=== PATIENT | male | born 1970 | race Caucasian/White ===

== ENCOUNTER 2023-11-13 23:52 | Emergency (ER) | payer BC, SELFPAY ==
[2023-11-14 00:10] VITALS: BP 165/108
[2023-11-14 00:45] LABS: Urine Albumin Trace (Neg - Trace); Urine Bilirubin Negative (Negative); Urine Character Clear (Clear); Urine Color Yellow; Urine Glucose Negative (Negative); Urine Ketone Negative (Negative); Urine Leukocyte Negative (Negative); Urine Nitrite Negative (Negative); Urine Occult Blood Negative (Negative); Urine Urobilinogen Negative (Neg - 1+)
[2023-11-14 02:47] VITALS: BMI 27.5
[2023-11-14 02:52] LABS: % Basophils 0.5 % (0-2); % Eosinophils 2.8 % (0-6); % Immature Granulocytes 0.2 % (0-0.5); % Lymphocytes 14.3 % (20.5-51.1); % Monocytes 5.5 % (1.7-9.3); % Neutrophils 76.7 % (42.2-75.2); Absolute Basophils 0.1 10^3/uL (0-0.2); Absolute Eosinophils 0.4 10^3/uL (0-0.7); Absolute Lymphocytes 1.8 10^3/uL (1.2-3.4); Absolute Monocytes 0.7 10^3/uL (0.1-0.6); Absolute Neutrophils 9.5 10^3/uL (1.4-6.5); Hematocrit 39.5 % (39.0-52.0); Hemoglobin 14.3 g/dL (13.0-18.0); Mean Corp Hgb Conc. 36.2 g/dL (33.0-37.0); Mean Corpuscular Hgb 32.6 pg (27.0-31.0); Mean Platelet Volume 9.5 fL (7.4-10.4); Nucleated Red Blood Cells % 0 % (-); Platelet Count 286 10^3/uL (130-400); Red Blood Cell Count 4.39 10^6/uL (4.70-6.10); Red Cell Dist. Width 14.3 % (11.5-14.5); White Blood Cell Count 12.4 10^3/uL (4.8-10.8)
[2023-11-14 03:05] LABS: ALT (SGPT) 52 U/L (0-50); AST (SGOT) 43 U/L (17-59); Albumin 5.5 g/dl (3.5-5.0); Alkaline Phosphatase 95 U/L (38-126); Blood Urea Nitrogen 10 mg/dl (9-20); Calcium 10.3 mg/dl (8.4-10.2); Carbon Dioxide 23 mmol/L (22-30); Chloride 104 mmol/L (98-107); Estimated Creatinine Clearance 119 ml/min; Glucose 110 mg/dl (70-99); Potassium 4.4 mmol/L (3.5-5.1); Sodium 143 mmol/L (135-145); Total Bilirubin 0.6 mg/dl (0.2-1.3); Total Protein 8.6 g/dl (6.3-8.2); eGFR > 60.00
[2023-11-14 03:18] VITALS: BP 124/74
--- NOTE | 2023-11-14 04:03 | ED.GENMED ---
History of Present Illness
<OLGA LIDIA Mendoza - Last Filed: 11/14/23 04:23>
General
Chief Complaint: Abdominal Pain
Source: patient
Exam Limitations: none
Time Seen by Provider: 11/14/23 03:38
Travel History
Have you had any contact with someone who has COVID-19?: No
Do you have any symptoms of coronavirus? Fever > 100 degrees, chills, cough, shortness of breath, sore throat, loss of taste or smell, muscle aches, or headache?: No
History of Present Illness
History of Present Illness:
52 year old male with hx of HTN, HLD, diverticulitis, bowel perforation with colon resection in 2013 who presents for waxing and waning RLQ abdominal pain that began at 2000 yesterday. 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
of 9/10 sharp RLQ abdominal pain that radiates to the back. He has associated nausea and vomiting x1. States the pain was so severe he was on the floor. States the pain felt similar to his pain when he had a bowel perforation. Pain currently is
6/10. Also reports abdominal bloating, burning sensation to the chest, and increased belching. No chest pain, SOB, fevers/chills, hematochezia, hematemesis, constipation, dysuria, hematuria. Pt with hx of IBS-D and states he has diarrhea at baseline
sometimes. No tobacco use. Reports drinking a couple of times a week, 1-2 beers each time. Luis M pt had 4 beers. Reports marijuana use.
Past History
<OLGA LIDIA Mendoza - Last Filed: 11/14/23 04:23>
Past History
ED Past Medical History: Other (divertic)
Social History
Tobacco: Non-smoker
Alcohol: Occasional
Drug: Marijuana
Personal:
Living: with family
Employment: Employed
Review of Systems
<OLGA LIDIA Mendoza - Last Filed: 11/14/23 04:23>
Review of Systems
Constitutional: Reports no symptoms
EENT: Reports no symptoms
Respiratory: Reports no symptoms
Cardiac: Reports no symptoms
ABD/GI: Reports abdominal pain, nausea, vomiting and diarrhea
: Reports no symptoms
Musculoskeletal: Reports no symptoms
Skin: Reports no symptoms
Neurological: Reports no symptoms
Phy Exam
<Jackelin Hopper [facility] - Last Filed: 11/14/23 04:23>
General Physical Exam
General Presentation: well appearing and no apparent distress
General Skin: warm and dry
General Habitus: normal
General Mental: alert
General Hydration: appears well hydrated
Pulmonary Exam
Pulmonary Exam: lungs clear, no respiratory distress, no rales, no crackles, no rhonchi, no wheezing and no cough
Gastrointestinal Exam
Gastrointestinal Exam: normal bowel sounds, no pulsatile mass, distended and no masses
Palpation: right lower quadrant: Moderate tenderness
Neurological Exam
Neurological Exam: alert and oriented x3
Skin Exam
Skin Exam: normal color and warm/dry
Psychiatric Exam
Psychiatric Exam: normal mood/affect
Course
<Jackelin Hopper [facility] - Last Filed: 11/14/23 04:23>
Orders/Labs/Results
Orders:
Orders
11/14/23 00:37
Urinalysis Reflex To Culture Urgent
Date Specimen was Collected: 11/14/23
Time Specimen was Collected: 00:18
11/14/23 02:45
CMP [Comprehensive Metabolic Panel] Urgent
Complete Blood Count/With Diff Urgent
11/14/23 03:06
Abdomen/Pelvis w Contrast CT [CT Abd/pelvis W Iv Cont] Urgent
Comment:
Reason For Exam: R abd pain, vomiting, hx bowel resection for perf
Abnormal Lab Results
11/14/23
02:45
WBC 12.4 H 10^3/uL
(4.8-10.8)
RBC 4.39 L 10^6/uL
(4.70-6.10)
MCH 32.6 H pg
(27.0-31.0)
Absolute Neuts (auto) 9.5 H 10^3/uL
(1.4-6.5)
Absolute Monos (auto) 0.7 H 10^3/uL
(0.1-0.6)
Neutrophils % 76.7 H %
(42.2-75.2)
Lymphocytes % 14.3 L %
(20.5-51.1)
Glucose 110 H mg/dl
(70-99)
Calcium 10.3 H mg/dl
(8.4-10.2)
ALT 52 H U/L
(0-50)
Total Protein 8.6 H g/dl
(6.3-8.2)
Albumin 5.5 H g/dl
(3.5-5.0)
11/14/23 02:45
11/14/23 02:45
Vital Signs
Initial and Last Documented VS:
Initial Vital Signs
Temp Pulse Resp BP Pulse Ox
97.9 F 79 18 165/108 96
11/14/23 00:10 11/14/23 00:10 11/14/23 00:10 11/14/23 00:10 11/14/23 00:10
Last Documented Vital Signs
Temp Pulse Resp BP Pulse Ox
97.9 F 70 16 124/74 97
11/14/23 00:10 11/14/23 03:18 11/14/23 03:18 11/14/23 03:18 11/14/23 03:18
<Arik Cifuentes, DO - Last Filed: 11/14/23 05:38>
Orders/Labs/Results
Orders:
Orders
11/14/23 00:37
Urinalysis Reflex To Culture Urgent
Date Specimen was Collected: 11/14/23
Time Specimen was Collected: 00:18
11/14/23 02:45
CMP [Comprehensive Metabolic Panel] Urgent
Complete Blood Count/With Diff Urgent
11/14/23 03:06
Abdomen/Pelvis w Contrast CT [CT Abd/pelvis W Iv Cont] Urgent
Comment:
Reason For Exam: R abd pain, vomiting, hx bowel resection for perf
Abnormal Lab Results
11/14/23
02:45
WBC 12.4 H 10^3/uL
(4.8-10.8)
RBC 4.39 L 10^6/uL
(4.70-6.10)
MCH 32.6 H pg
(27.0-31.0)
Absolute Neuts (auto) 9.5 H 10^3/uL
(1.4-6.5)
Absolute Monos (auto) 0.7 H 10^3/uL
(0.1-0.6)
Neutrophils % 76.7 H %
(42.2-75.2)
Lymphocytes % 14.3 L %
(20.5-51.1)
Glucose 110 H mg/dl
(70-99)
Calcium 10.3 H mg/dl
(8.4-10.2)
ALT 52 H U/L
(0-50)
Total Protein 8.6 H g/dl
(6.3-8.2)
Albumin 5.5 H g/dl
(3.5-5.0)
11/14/23 02:45
11/14/23 02:45
Vital Signs
Initial and Last Documented VS:
Initial Vital Signs
Temp Pulse Resp BP Pulse Ox
97.9 F 79 18 165/108 96
11/14/23 00:10 11/14/23 00:10 11/14/23 00:10 11/14/23 00:10 11/14/23 00:10
Last Documented Vital Signs
Temp Pulse Resp BP Pulse Ox
97.9 F 70 16 124/74 97
11/14/23 00:10 11/14/23 03:18 11/14/23 03:18 11/14/23 03:18 11/14/23 03:18
<OLGA LIDIA Mendoza - Last Filed: 11/14/23 04:23>
MDM/Problems Addressed
Differential Diagnosis Includes:
Appendicitis, pancreatitis, diverticulosis, diverticulitis, small bowel obstruction, bowel perforation
MDM/Problems Addressed:
52 year old male with hx of HTN, HLD, diverticulitis, small bowel perforation who presents with RLQ abdominal pain with nausea and vomiting that began 10 pm Sunday.
Chronic conditions affecting care: HTN and Other (HLD)
<OLGA LIDIA Mendoza - Last Filed: 11/14/23 04:23>
*Critical Care Note
Total Time (30-74mins, 75-104mins- exclusive of procedures): Not Applicable
<Arik Cifuentes DO - Last Filed: 11/14/23 05:38>
Update Note
Update Note:
CT ABDOMEN/PELVIS WITH CONTRAST
IMPRESSION:
1. Mild distal esophageal wall thickening, can be correlated with signs or symptoms of esophagitis
2. No bowel obstruction. Normal gallbladder and appendix
Incidentals:
-Moderate stool burden
- No obstructive uropathy.
- No hepatic or pancreatic mass.
- No abdominal aortic aneurysm.
- No acute osseous abnormality.
- No acute abnormality within the visualized lungs.
- No acute abnormality within the visualized soft tissues.
ED Attending Note
<OLGA LIDIA Mendoza - Last Filed: 11/14/23 04:23>
-
Portions of this chart may have been created with voice recognition software.� Occasional wrong word or��sound alike� substitutions may have occurred due to the inherent limitations of voice recognition software.
<Arik Cifuentes DO - Last Filed: 11/14/23 05:38>
ED Attending Note
Patient seen and examined by attending physician: Yes
I performed the substantive portion of visit, reviewed & personally made and approve the management plan that is documented in note by myself or SHALINI.: No
I performed a history and physical exam of patient and discussed management with resident, I reviewed resident's note and agree with documented findings and plan of care.: No
ED Attending Note:
Pleasant 52-year-old male presents with right lower quadrant abdominal pain that began around 8 PM last evening. 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 He reported that radiates
straight through to the back. He denies chest pain or shortness of breath. Patient does report having several beers this evening.
Discharge Plan
Departure
Patient Disposition: Home (Routine Discharge)
Date of Disposition: 11/14/23
Time of Disposition: 05:36
Patient with high blood pressure during this ER visit?: Yes
Condition: Good
Discharge Problem:
Abdominal pain
Instructions: Abdominal Pain, BLOOD PRESSURE, Constipation, Adult (DC), Acid Reflux and GERD in Adults (DC)
Prescriptions:
No Action
Lactobacillus acidophilus 1 EACH tablet
1 cap PO TID
fexofenadine-pseudoephedrine [Maria Fernanda-D 24 Hour] 1 EACH tablet extended release 24 hr
1 tab PO DAILY
omega-3 fatty acids-fish oil [Fish Oil] 1,000 MG capsule
2 cap PO BID
polyethylene glycol 3350 17 GRAMS powder in packet
17 grams PO DAILY PRN (Reason: CONSTIPATION)
acetaminophen [Tylenol Extra Strength] 500 MG tablet
1,000 mg PO Q6H PRN (Reason: PAIN)
dicyclomine 10 MG capsule
10 mg PO QID PRN (Reason: ABDOMINAL SPASM)
Patient Comments:
'NEW MEDICINE'
metronidazole 500 MG tablet
500 mg PO Q8 Qty: 33 0RF
levofloxacin 500 MG tablet
500 mg PO DAILY Qty: 11 0RF
Interventions
Interventions:
*Risk Screen - Suicide Last Done: 11/14/23 04:33
*General Assessment Last Done: 11/14/23 04:33
*Neglect/Abuse Screening Last Done: 11/14/23 04:33
*ED COVID-19 Vaccine History Last Done: 11/14/23 04:33
AN-Dfxhdr-Pxuxugftgd Assessment Last Done: 11/14/23 04:33
Discharge Date and Time
Print Language: OMANI
== END 2023-11-14 06:22 | disposition home or self-care (01) ==
LOC: EMR 23:52
PROVIDERS: Emergency Medicine; EMERGENCY PHYSICIAN Student in an Organized Health Care Education/Training Program
DX: R10.31 Right lower quadrant pain (principal); E78.00 Pure hypercholesterolemia, unspecified; I10 Essential (primary) hypertension; K58.9 Irritable bowel syndrome, unspecified
CPT/HCPCS: 99284; 74177; 80053; 81003; 85025; Q9967